=== PATIENT | male | born 1950 | race Caucasian/White ===

== ENCOUNTER 2018-03-26 07:22 | Day surgery (SDC) | payer MEDICARE, OTHER ==
[~2018-03-26] VITALS: Ht 175.3 cm; Wt 104.5 kg
--- NOTE | ~2018-03-26 | OP ---
PATIENT NAME: AUDRA PETERSEN MEDICAL RECORD: [id number] :50 LOCATION:[facility] ADMISSION DATE: SURGEON: DAREK SALVADOR DO DATE OF OPERATION: 03/26/2018 PROCEDURE: Colonoscopy with polypectomy. INDICATIONS FOR PROCEDURE: Screening colonoscopy. SCOPE: Olympus video pediatric colonoscope. MEDICATIONS: Propofol 550 mg IV per anesthesia. WITHDRAWAL TIME: 27 minutes. ESTIMATED BLOOD LOSS: Minimal. COMPLICATIONS: None. FINDINGS: Informed consent was given. The patient was made comfortable with the above medication. After reaching an adequate level of sedation by slow IV push, the patient was placed on his left side. A digital rectal examination was performed and was normal. The endoscope was then advanced under direct visualization through the rectum to the cecum and terminal ileum. The endoscope was slowly withdrawn and mucosa was carefully examined. The prep quality was good. There were multiple polyps visualized on today's examination. Three were located in the ascending colon. There were a mix between flat and sessile polyps. Two of these polyps were removed using a hot snare alone and a third polyp was removed using EMR technique with an injection of isotonic saline for a saline pillow followed by snare polypectomy. All three of these polyps were completely removed. Another polyp was located in the transverse colon, it was a benign appearing sessile polyp, which measured approximately 4 mm in diameter. It was removed using a hot forceps in 1 piece and completely retrieved. In the descending colon, there was another polyp, which was benign appearing and sessile. It measured approximately 5 mm in diameter and was removed using a hot forceps in 1 piece and completely retrieved. In the sigmoid colon, there were two separate benign-appearing polyps, which measured approximately 5-6 mm in diameter. They were both removed using a hot snare. There was evidence of mild diverticulosis in the sigmoid colon without evidence of diverticulitis. Retroflexion was performed in the rectum with visualization of grade I internal hemorrhoids without bleeding. The endoscope was then withdrawn from the patient. The patient tolerated the procedure well and there were no complications. IMPRESSION: 1. Seven polyps as described above in multiple segments of the bowel. All of these polyps were completely removed with various techniques including EMR, hot snare, hot forceps. 2. Mild diverticulosis of the sigmoid colon. 3. Grade I internal hemorrhoids without active bleeding. PLAN AND RECOMMENDATIONS: 1. Discharge home when recovery parameters are met. 2. Follow up biopsy specimen results. 3. High fiber diet. OPERATIVE REPORT [id number] AUDRA PETERSEN 4. Continue current medications. 5. Recall colonoscopy in 1-2 years based on the number and types of polyps removed on today's examination. TRANSINT:[id number] Voice Confirmation ID: [id number] DOCUMENT ID: [id number] DAREK SALVADOR DO at 1531 CC: [id number] DICTATION DATE: 03/26/18 0938 CARTON MARKER MACHINE: 03/26/18 1259 [facility] 03/26/18 [facility] [address] [place] [address]
[2018-03-26 07:40] LABS: HEMATOCRIT 45.4 % (42.0-54.0); HEMOGLOBIN 15.4 g/dL (13.5-17.5); MCH 30.4 pg (26.0-34.0); MCHC 33.9 g/dL (31.0-37.0); MCV 89.5 fL (80.0-100.0); MEAN PLATELET VOLUME 10.4 fL (7.4-10.4); RBC 5.07 10x6/uL (4.20-6.10); RDW 14.2 % (11.5-14.5); WBC 5.5 10x3/uL (4.8-10.8)
[2018-03-26] MEDS ORDERED: VIBRAMYCIN 100100 MG PO (08:01)
[2018-03-26] MEDS ORDERED: HYDROXYZINE HCL50 MG (08:02)
[2018-03-26] MEDS ORDERED: HCTZ25 MG PO (08:02)
[2018-03-26] MEDS ORDERED: BAYER CHEWABLE81 MG PO (08:02)
[2018-03-26] MEDS ORDERED: ISOSORBIDE MONO60 M1 PO (08:03)
[2018-03-26] MEDS ORDERED: JANUMET 50-5001 TAB PO (08:03)
[2018-03-26] MEDS ORDERED: TOPROL XL25 MG (08:03)
[2018-03-26] MEDS ORDERED: PLAVIX75 MG PO (08:04)
[2018-03-26] MEDS ORDERED: METOPROLOL TART25 MG PO (08:04)
[2018-03-26] MEDS ORDERED: ZYRTEC10 MG PO (08:05)
[2018-03-26] MEDS ORDERED: CRESTOR10 MG PO (08:05)
[2018-03-26 08:06] LABS: ANION GAP 15.6 mmol/L (8-16); CALCIUM 10.1 mg/dL (8.5-10.1); CARBON DIOXIDE 28.2 mmol/L (21.0-32.0); POTASSIUM - SERUM 3.8 mmol/L (3.5-5.1)
[2018-03-26 08:15] VITALS: BP 157/93; Ht 175.3 cm; Wt 104.5 kg
== END 2018-03-26 11:00 | disposition home or self-care (01) ==
LOC: D.OPS 07:22
PROVIDERS: Anesthesiology
DX: D12.2 Benign neoplasm of ascending colon (principal); Z12.11 Encounter for screening for malignant neoplasm of colon; D12.4 Benign neoplasm of descending colon; D12.5 Benign neoplasm of sigmoid colon; D12.3 Benign neoplasm of transverse colon; K64.0 First degree hemorrhoids; K57.30 Diverticulosis of large intestine without perforation or abscess without bleeding; I25.10 Atherosclerotic heart disease of native coronary artery without angina pectoris; I10 Essential (primary) hypertension; E11.9 Type 2 diabetes mellitus without complications; Z95.1 Presence of aortocoronary bypass graft; Z01.812 Encounter for preprocedural laboratory examination

== ENCOUNTER 2018-08-21 18:29 | Emergency (ER) | payer MEDICARE, OTHER ==
[~2018-08-21] VITALS: Ht 175.3 cm; Wt 106.8 kg
[~2018-08-21 18:29] MED LIST: BAYER CHEWABLE81 MG PO; CRESTOR10 MG PO; HCTZ25 MG PO; HYDROXYZINE HCL50 MG; ISOSORBIDE MONO60 M1 PO; JANUMET 50-5001 TAB PO; METOPROLOL TART25 MG PO; PLAVIX75 MG PO; TOPROL XL25 MG; VIBRAMYCIN 100100 MG PO; ZYRTEC10 MG PO
[2018-08-21 18:59] VITALS: Ht 175.3 cm; Wt 106.8 kg
[2018-08-21] MEDS ORDERED: CARAFATE1 G (19:01)
[2018-08-21] MEDS ORDERED: OMEPRAZOLE20 M1 PO (19:02)
[2018-08-21 19:34] LABS: APPEARANCE CLEAR (CLEAR); BILIRUBIN NEGATIVE (NEGATIVE); COLOR YELLOW (YELLOW); GLUCOSE NEGATIVE (NEGATIVE); KETONE NEGATIVE (NEGATIVE); NITRITE NEGATIVE (NEGATIVE); PROTEIN NEGATIVE (NEGATIVE); UROBILINOGEN NORMAL (NORMAL)
[2018-08-21 19:36] LABS: BASOPHILS 0.1 % (0-2); EOSINOPHILS 1.5 % (0-7); HEMOGLOBIN 14.5 g/dL (13.5-17.5); IMMATURE GRANULOCYTES 0.3 % (0-5); LYMPHOCYTES 19.2 % (15-50); MCH 30.3 pg (26.0-34.0); MCHC 33.7 g/dL (31.0-37.0); MEAN PLATELET VOLUME 10.1 fL (7.4-10.4); MONOCYTES 7.4 % (2-11); NEUTROPHILS 71.5 % (40-80); PLATELET COUNT 201 10x3/uL (130-400); RBC 4.78 10x6/uL (4.20-6.10); RDW 14.2 % (11.5-14.5); WBC 7.2 10x3/uL (4.8-10.8)
[2018-08-21 20:02] LABS: ALBUMIN 3.9 g/dL (3.4-5.0); ALKALINE PHOSPHATASE 40 U/L (46-116); ALT (SGPT) 147 U/L (10-68); BILIRUBIN - TOTAL 1.67 mg/dL (0.2-1.3); CALC OSMOLALITY 285 mosm/kg (275-300); CALCIUM 9.7 mg/dL (8.5-10.1); CARBON DIOXIDE 27.2 mmol/L (21.0-32.0); CHLORIDE - SERUM 103 mmol/L (98-107); CREATININE - SERUM 2.1 mg/dL (0.6-1.3); GLUCOSE 146 mg/dL (74-106); POTASSIUM - SERUM 3.5 mmol/L (3.5-5.1); PROTEIN - SERUM 7.5 g/dL (6.4-8.2); SODIUM 140 mmol/L (136-145); UREA NITROGEN 24 mg/dL (7-18); eGFR NON AFRICAN AMERICAN 33 mL/min (90-120)
[2018-08-21 20:06] LABS: AMYLASE - SERUM 72 U/L (25-115); LIPASE 267 U/L (73-393)
[2018-08-21 20:12] LABS: TROPONIN-I < 0.017 ng/mL (0.000-0.060)
[2018-08-21] MEDS ORDERED: HYDROCODON-ACE1 EAC7 PO (23:07)
[2018-08-21 23:20] VITALS: BP 141/85
== END 2018-08-21 23:21 | disposition home or self-care (01) ==
LOC: D.ER 18:29
PROVIDERS: Family Medicine
DX: R10.13 Epigastric pain (principal); R79.89 Other specified abnormal findings of blood chemistry; N28.9 Disorder of kidney and ureter, unspecified; E11.9 Type 2 diabetes mellitus without complications; I10 Essential (primary) hypertension; B20 Human immunodeficiency virus [HIV] disease

== ENCOUNTER → 2018-08-29 12:13 | Outpatient (CLI) | payer MEDICARE, OTHER ==
[2018-08-21 18:59] VITALS: BMI 34.7
[~2018-08-29 12:13] MED LIST changes: +CARAFATE1 G; +HYDROCODON-ACE1 EAC7 PO; +OMEPRAZOLE20 M1 PO
== END | disposition home or self-care (01) ==
LOC: D.NM 12:13
DX: R10.11 Right upper quadrant pain (principal)

== ENCOUNTER → 2018-09-26 05:32 | Day surgery (SDC) | payer MEDICARE, OTHER ==
[~2018-09-26] VITALS: Ht 175.3 cm; Wt 108.6 kg
[2018-09-26 05:53] LABS: HEMATOCRIT 44.2 % (42.0-54.0); MCH 30.5 pg (26.0-34.0); MCHC 33.9 g/dL (31.0-37.0); MEAN PLATELET VOLUME 10.1 fL (7.4-10.4); RBC 4.91 10x6/uL (4.20-6.10); RDW 13.8 % (11.5-14.5); WBC 4.6 10x3/uL (4.8-10.8)
[2018-09-26 06:12] LABS: ANION GAP 14.7 mmol/L (8-16); CALCIUM 9.4 mg/dL (8.5-10.1); CREATININE - SERUM 1.9 mg/dL (0.6-1.3); POTASSIUM - SERUM 3.7 mmol/L (3.5-5.1)
[2018-09-26 06:13] LABS: APTT 29.2 SECONDS (22.8-39.4); INR 1.05 (0.85-1.17); PROTIME 13.2 SECONDS (11.6-15.0)
[2018-09-26 06:32] VITALS: BP 153/86; Ht 175.3 cm; Wt 108.6 kg
--- NOTE | 2018-09-26 08:38 | NUR ---
0835 PT TOLERATING FULL LIQUID DIET
--- NOTE | 2018-09-26 08:54 | NUR ---
0842 IV DISCONTINUED FROM RIGHT AC. CATHETER INTACT. COTTON BALL AND BANDAID APPLIED.
--- NOTE | 2018-10-01 17:43 | OP ---
PATIENT NAME: AUDRA PETERSEN MEDICAL RECORD: [id number] :50 LOCATION:[facility] ADMISSION DATE: SURGEON: DAREK SALVADOR DO DATE OF OPERATION: 09/26/2018 PROCEDURE: EGD with biopsies. INDICATIONS FOR PROCEDURE: Gastroesophageal reflux disease and epigastric abdominal pain. SCOPE: [employer] video gastroscope. MEDICATIONS: Propofol 160 mg IV per anesthesia. ESTIMATED BLOOD LOSS: Minimal. COMPLICATIONS: None. FINDINGS AND DESCRIPTION OF PROCEDURE: Informed consent was given. The patient was made comfortable with the above medication. After reaching an adequate level of sedation by slow IV push, the patient was placed on his left side. The endoscope was advanced under direct visualization through the mouth to the second portion of the duodenum. The upper, middle, and lower thirds of the esophagus appeared normal. At the GE junction, there was evidence of LA class B reflux-induced esophagitis and possible Arevalo's esophagus. Cold forceps biopsy was taken to rule out the presence of Arevalo's mucosa. There were no dysplastic changes apparent on endoscopy view. The endoscope was advanced beyond the GE junction into the stomach and retroflexed to view the cardia and fundus, which appeared normal. Throughout the body and antrum of the stomach, there was some patchy erythema and granularity consistent with possible gastritis. A single cold forceps biopsy was taken from the antrum to submit for histopathology and to rule out the presence of H. pylori. The endoscope was advanced beyond the pylorus into the duodenum. The entire examined duodenum appeared normal. The endoscope was then withdrawn from the patient. The patient tolerated the procedure well and there were no complications. IMPRESSION: 1. LA class B reflux-induced esophagitis and possible Arevalo's esophagus. Biopsies pending. 2. Patchy gastritis characterized by erythema and granularity. Biopsy pending. PLAN AND RECOMMENDATIONS: 1. Discharge home when recovery parameters are met. 2. Follow up biopsy specimen results. 3. GERD diet and reflux precautions. 4. Continue current medications. 5. We will provide a prescription for Pepcid 40 mg to be taken once to twice daily for 60 days, then can be taken as needed for symptomatic epigastric pain due to reflux. 6. If Arevalo's is present, we will consider surveillance endoscopies every 2 years. This will have to be weighed with the patient's significant cardiac history and risk for anesthesia related adverse events. 7. We will treat for H. pylori if indicated by biopsies. TRANSINT:[id number] Voice Confirmation ID: [id number] DOCUMENT ID: [id number] OPERATIVE REPORT [id number] AUDRA PETERSEN,DAREK Erazo DO at 1743 CC: [id number] DICTATION DATE: 09/26/18813 DISABILITY REPRESENTATIVE: 09/26/18 1127 [facility] 09/26/18 [id number] [place] [address]
== END | disposition home or self-care (01) ==
LOC: D.OPS 05:32
PROVIDERS: Anesthesiology
DX: K21.0 Gastro-esophageal reflux disease with esophagitis (principal); K29.70 Gastritis, unspecified, without bleeding; Z01.812 Encounter for preprocedural laboratory examination

== ENCOUNTER 2020-12-14 07:57 | Day surgery (SDC) | payer MEDICARE, OTHER ==
[~2020-12-14] VITALS: Ht 175.3 cm; Wt 98.2 kg
[2020-12-14 08:50] LABS: ALBUMIN 4.2 g/dL (3.4-5.0); ANION GAP 19.8 mmol/L (8-16); BILIRUBIN - TOTAL 0.83 mg/dL (0.2-1.3); CALCIUM 9.6 mg/dL (8.5-10.1); CARBON DIOXIDE 22.7 mmol/L (21.0-32.0); CREATININE - SERUM 1.8 mg/dL (0.6-1.3); POTASSIUM - SERUM 3.5 mmol/L (3.5-5.1); PROTEIN - SERUM 8.2 g/dL (6.4-8.2)
[2020-12-14 08:59] LABS: APTT 29.7 SECONDS (22.8-39.4); INR 1.11 (0.85-1.17); PROTIME 13.3 SECONDS (11.6-15.0)
[2020-12-14 09:01] VITALS: BP 179/78; Ht 175.3 cm; Wt 98.2 kg
[2020-12-14 09:31] LABS: BASOPHILS 0.4 % (0-2); EOSINOPHILS 6.8 % (0-7); HEMATOCRIT 46.8 % (42.0-54.0); HEMOGLOBIN 15.8 g/dL (13.5-17.5); IMMATURE GRANULOCYTES 0.2 % (0-5); LYMPHOCYTE ABS# 1.11 10x3/uL (1.32-3.57); LYMPHOCYTES 21.6 % (15-50); MCH 30.3 pg (26.0-34.0); MCHC 33.8 g/dL (31.0-37.0); MCV 89.7 fL (80.0-100.0); MONOCYTES 9.7 % (2-11); NEUTROPHIL ABS# 3.15 10x3/uL (1.78-5.38); NEUTROPHILS 61.3 % (40-80); PLATELET COUNT 177 10x3/uL (130-400); RBC 5.22 10x6/uL (4.20-6.10); RDW 13.9 % (11.5-14.5); WBC 5.1 10x3/uL (4.8-10.8)
--- NOTE | 2020-12-14 11:14 | NUR ---
DC INSTRUCTIONS GIVEN TO PT. STATES UNDERSTANDING. DC'D IV CATH FULLY INTACT. PT VOIDED. WILL DC SHORTLY.
--- NOTE | 2020-12-14 11:32 | NUR ---
PT LEFT UNIT VIA WC AT 1122
--- NOTE | 2020-12-16 07:30 | OP ---
PATIENT NAME: AUDRA PETERSEN MEDICAL RECORD: [id number] :50 LOCATION:[facility] ADMISSION DATE: SURGEON: DAREK SALVADOR DO DATE OF OPERATION: 12/14/2020 PROCEDURE: Colonoscopy with polypectomy. INDICATION FOR PROCEDURE: Screening for colorectal cancer with a history of colon polyps. The patient's last colonoscopy was on 03/26/2018 at which point in time, he had multiple polyps. SCOPE: Olympus video pediatric colonoscope. MEDICATIONS: Propofol 380 mg IV per anesthesia. WITHDRAWAL TIME: 10 minutes. ESTIMATED BLOOD LOSS: Minimal. COMPLICATIONS: None. FINDINGS: Informed consent was given. The patient was made comfortable with the above medication. After reaching an adequate level of sedation by slow IV push, the patient was placed on his left side. A digital rectal examination was performed and it was normal. The endoscope was advanced under direct visualization through the rectum to the cecum, confirmed by the presence of the appendiceal orifice and ileocecal valve. The endoscope was slowly withdrawn, and the mucosa was carefully examined. The prep quality was good. There were multiple diverticula visualized on today's examination. These were located in the descending and sigmoid colon. There was no evidence of diverticulitis. There were 5 polyps located in the rectum, which were benign-appearing and sessile and ranged in size from 3 mm to 8 mm in diameter. They were all removed using a hot snare. In the ascending colon, there was a benign-appearing sessile polyp, which measured approximately 6 mm in diameter. It was removed using a hot snare. Retroflexion was performed in the rectum with visualization of grade I internal hemorrhoids without bleeding. The endoscope was withdrawn from the patient. The patient tolerated the procedure well and there were no complications. IMPRESSION: 1. Six polyps as described above, removed using a hot snare. 2. Mild diverticulosis of the descending and sigmoid colon without evidence of diverticulitis. 3. Grade I internal hemorrhoids without bleeding. PLAN AND RECOMMENDATIONS: 1. Discharge home when recovery parameters are met. 2. Follow up biopsy specimen results. 3. High fiber diet. 4. Continue current medications. 5. Recall colonoscopy in 2-3 years based on a history of polyps. TRANSINT:[id number] Voice Confirmation ID: [id number] DOCUMENT ID: [id number] OPERATIVE REPORT [id number] AUDRA PETERSEN DAREK SALVADOR DO at 0730 CC: [id number] DICTATION DATE: 12/14/20 1032 TRIMMING MACHINE OPERATOR: 12/14/20 1231 [facility] 12/14/20 [id number] [place] [address]
== END 2020-12-14 11:22 | disposition home or self-care (01) ==
LOC: D.OPS 07:57
PROVIDERS: Anesthesiology; ATTEND Internal Medicine Gastroenterology
DX: Z12.11 Encounter for screening for malignant neoplasm of colon (principal); Z86.010 Personal history of colon polyps; K63.5 Polyp of colon; K57.30 Diverticulosis of large intestine without perforation or abscess without bleeding; K64.0 First degree hemorrhoids; K22.70 Barrett's esophagus without dysplasia